=== PATIENT | female | born 1980 | race Caucasian/White ===

== ENCOUNTER 2019-02-12 11:43 | Emergency (ER) | payer BC ==
[2019-02-12 12:58] VITALS: BP 113/70
--- NOTE | 2019-02-12 13:13 | UC ---
Throat Pain/Nasal Oits HPI - HPI Summary HPI Summary: The patient is a 38-year-old female with a severe sore throat 4-5 days. She has had no fever or chills. She can tolerate liquids. Her [id number] daughter was recently hospitalized at [facility] with a severe adenovirus infection. - History of Current Complaint Chief Complaint: UCGeneralIllness Stated Complaint: SORE THROAT Time Seen by Provider: 02/12/19 13:12 Hx Obtained From: Patient Hx Last Menstrual Period: 01/21/19 Onset/Duration: Gradual Onset, Lasting Days Severity: Moderate Pain Intensity: 7 Pain Scale Used: 0-10 Numeric Cough: None Associated Signs & Symptoms: Positive: Dysphagia. Negative: FB Sensation, Drooling, Wheezing, Hoarseness, Sinus Discomfort, Nasal Discharge, Fever, Vomiting, Rash - Epiglottits Risk Factors Epiglottis Risk Factors: Negative - Allergies/Home Medications Allergies/Adverse Reactions: Allergies Allergy/AdvReac Type Severity Reaction Status Date / Time Penicillins Allergy Hives Verified 02/12/19 12:58 PMH/Surg Hx/FS Hx/Imm Hx Previously Healthy: Yes - Surgical History Surgical History: Yes Surgery Procedure, Year, and Place: cyst - Family History Known Family History: Positive: Hypertension, Non-Contributory - Social History Alcohol Use: Occasionally Substance Use Type: None Smoking Status (MU): Never Smoked Tobacco Review of Systems All Other Systems Reviewed And Are Negative: Yes Constitutional: Positive: Negative Skin: Positive: Negative Eyes: Positive: Negative ENT: Positive: Sore Throat - ++++ Respiratory: Positive: Negative Cardiovascular: Positive: Negative Gastrointestinal: Positive: Negative Genitourinary: Positive: Negative Motor: Positive: Negative Neurovascular: Positive: Negative Musculoskeletal: Positive: Negative Neurological: Positive: Negative Psychological: Positive: Negative Physical Exam Triage Information Reviewed: Yes Appearance: Well-Appearing, No Pain Distress, Well-Nourished Vital Signs: Initial Vital Signs Temp 98 F 02/12/19 12:55 Pulse 75 02/12/19 12:55 Resp 16 02/12/19 12:55 BP 113/70 02/12/19 12:55 Pulse Ox 100 02/12/19 12:55 Vital Signs Reviewed: Yes Eyes: Positive: Conjunctiva Inflamed - L ENT: Positive: Hearing grossly normal, Pharyngeal erythema, Tonsillar swelling, Tonsillar exudate Dental Exam: Normal Neck: Positive: Supple, Enlarged Nodes @ - tender ant cerv LN, no post cerv adenopathy Respiratory: Positive: Lungs clear, Normal breath sounds, No respiratory distress Cardiovascular: Positive: RRR, No Murmur Musculoskeletal: Positive: ROM Intact, No Edema Neurological: Positive: Alert Psychological Exam: Normal Skin Exam: Normal Diagnostics - Laboratory Lab Results: strep (-) Throat Pain/Nasal Course/Dx - Differential Dx/Diagnosis Provider Diagnosis: Exudative tonsillitis, Conjunctivitis due to Adenovirus Discharge ED - Sign-Out/Discharge Documenting (check all that apply): Patient Departure All imaging exams completed and their final reports reviewed: No Studies - Discharge Plan Condition: Stable Disposition: HOME Prescriptions: predniSONE [Prednisone 20 MG TAB] 60 mg PO DAILY #6 tab Patient Education Materials: Tonsillitis (ED) Referrals: No Primary Care Phys,NOPCP [Primary Care Provider] - Additional Instructions: your strep test was negative It's likely that your symptoms are due to adenovirus rest fluids warm salt water gargles recheck for worsening symptoms see your MD or return here Saturday if not better - Billing Disposition and Condition Condition: STABLE Disposition: Home
[2019-02-12] MEDS ORDERED: predniSONE TAB* 20 MG PO ONE (13:32)
[2019-02-12] MEDS ORDERED: predniSONE TAB* 20 MG ONE (13:43)
== END 2019-02-12 13:47 | disposition home or self-care (01) ==
LOC: UCEAST 11:43
DX: J03.90 Acute tonsillitis, unspecified (principal); B30.1 Conjunctivitis due to adenovirus; Z88.0 Allergy status to penicillin
CPT/HCPCS: 87651; 99212; G0463; J7512